=== PATIENT | male | born 1980 | race Caucasian/White ===

== ENCOUNTER 2022-06-10 08:39 | Emergency (ER) | payer MEDICAID, SELFPAY ==
--- NOTE | ~2022-06-10 | XR_ITS ---
EXAMINATION: XR CHEST CLINICAL INFORMATION: Chest tightness COMPARISON: 03/05/2019 TECHNIQUE: Frontal view of the chest was obtained. FINDINGS: Lungs are well-inflated and clear. Trachea is midline in position. No interstitial disease, consolidation or mass. No pleural effusion or pneumothorax. Cardiac silhouette and pulmonary vessels are normal in size. The mediastinum and kirill have normal contour. The visualized bones, and upper abdomen, are unremarkable. XR/XR chest 1V IMPRESSION: No acute cardiopulmonary abnormality.
--- NOTE | 2022-06-10 08:43 | ECG_ITS ---
Test Reason : chest pain Blood Pressure : / mmHG Vent. Rate : 078 BPM Atrial Rate : 078 BPM P-R Int : 188 ms QRS Dur : 098 ms QT Int : 380 ms P-R-T Axes : 064 025 000 degrees QTc Int : 433 ms Normal sinus rhythm Normal ECG When compared with ECG of 05-MAR-2019 07:26, No significant change was found Referred By: Generic ED Physician Electronically Signed By:Gerardo Patton
[2022-06-10 08:44] VITALS: BP 173/94; PULSE 79; RESP 18; TEMP 36.6; O2SAT 97; BMI 48.6
--- NOTE | 2022-06-10 09:29 | ED_ITS ---
HPI - General Adult General Chief complaint: General Medical Stated complaint: Chest tightness/ R&L shoulder pain Time Seen by Provider: 06/10/22 09:11 Source: patient Mode of arrival: ambulatory Limitations: no limitations History of Present Illness HPI narrative: 42-year-old male history of anxiety presents to the ED for chest tightness, anxious racing thoughts, tingling in extremities, and bilaterally aching shoulders. Patient denies any leg swelling, calf pain, coughing up blood, pleurisy, chest pain radiating to the back, fever, chills, or recent trauma. Patient states yesterday he was seen to get license and he was anxious and his blood pressure was high at the occupational health office. Patient states blood pressure has been high before when he had primary care provider and was anxious before visit and did improve during visit. Patient states he has been without primary care provider for a while. Patient denies any family history of anyone dying from RI less than 50 or dying suddenly from a blood clot less than 50. Patient denies any drug use. Related Data Previous Rx's Medication Instructions Recorded hydroxyzine HCl 25 mg tablet 25 mg PO QID PRN anxiety 7 days 06/10/22 #28 tabs Allergies Allergy/AdvReac Type Severity Reaction Status Date / Time No Known Allergies Allergy Unverified 02/17/20 16:33 Review of Systems Review of Systems: chest tighness, anxious thoughts, bilateral achy shoulders, tingling in extremites Yes all other systems are reviewed and are negative PMFSH Social History Social History Alcohol intake: never Smoked in Last 30 Days: Yes Use of substances other than those prescribed or required for medical reasons: Yes Substance Use Type: Marijuana Substance Use Frequency: Occasionally Advance Directives: No Advance Directives Information Provided: Yes Physical Exam ED Vital Signs: Vital Signs - 24 hr 06/10/22 08:44 06/10/22 10:00 06/10/22 12:03 Temperature 98 F 100.3 F 97.6 F Pulse Rate 79 74 64 Respiratory Rate 18 14 16 Blood Pressure 173/94 H 151/91 H 151/84 H Pulse Oximetry 97 96 97 Oxygen Delivery Method Room Air Room Air Room Air 06/10/22 12:11 06/10/22 13:54 Temperature 97.8 F 97.9 F Pulse Rate 72 66 Respiratory Rate 14 18 Blood Pressure 142/87 H 148/92 H Pulse Oximetry 100 97 Oxygen Delivery Method Room Air Room Air BMI result Body Mass Index 48.6 Const General: cooperative, healthy appearing, comfortable, no acute distress and well developed Orientation/consciousness: oriented to person, oriented to place, oriented to time and patient oriented x3 [facility] Head: Yes normal to inspection, Yes No palpable skull fracture present, Yes normocephalic and Yes atraumatic Eyes General: appearance normal, both eyes and all related structures Neck Neck: Yes normal visual inspection, Yes full ROM, Yes no lymphadenopathy, Yes no meningeal signs, Yes trachea midline, Yes supple, No anterior neck swelling and No tender Chest Chest palpation & inspection: normal inspection of the chest and normal palpation of entire chest wall Resp Effort & Inspection: normal respiratory effort and able to speak in complete sentences Auscultation: clear to auscultation bilaterally Cardio Jugular venous distension: no JVD Heart sounds: S1 normal heart sound present and S2 normal heart sound present GI Inspection: Yes normal to inspection and No abdominal wall ecchymosis Palpation (GI): Soft to palpation, not firm, nontender, no guarding and not rigid General: No CVA tenderness and Yes no CVA tenderness Back/Spine/Pelvis Back: no CVA tenderness, No CVA tenderness and No back tenderness Skin General skin exam: no rashes or lesions noted and elasticity normal Neuro Other: Negative for any neuro deficit General: oriented to person, oriented to place, oriented to time, patient oriented x3, gait normal, tone normal, moves all extremities, Normal light touch and pain sensation, no meningeal signs, no focal motor deficits, CN's II-XI intact bilaterally and normal sensation to monofilament Extrem Other: Bilateral lower extremities negative for swelling, pain edema, or calf tenderness General: Yes normal to inspection and Yes full ROM Psych Appearance: grossly normal, well kempt and not disheveled Course Course Course Narrative: Patient well-appearing. Symptoms may be due to anxiety but will do medical evaluation including EKG, troponin, BNP, chest x-ray, and COVID swab. Reevaluation(s) Reevaluation #1: EKG negative STEMI. Two troponins negative. D-dimer negative. Perc score is 0. BNP negative for CHF. Symptoms may be due to anxiety patient will be dis charged with Atarax but told to follow-up with primary care provider for further evaluation. Time: 14:17 Medical Decision Making Medical Decision Making [facility] Narrative: 42-year-old male history of anxiety presents to ED for chest tightness with anxious thoughts and bilateral shoulder achines. Patient denies any chest pain rib into the back. Pleurisy, leg swelling, calf pain, coughing up blood, fever, or chills. Will do a medical evaluation. Patient is not suicidal or homicidal Differential Diagnosis Differential Diagnoses: The differential diagnosis associated with the presentation includes (Pneumonia, CHF, mi, PE,) Admission/Observation Patient no indication admission or observation Consult Healthcare Provider No need for further consult/evaluate Lab Data [facility] Lab Attestation statement: I reviewed the patient's lab results. 06/10/22 09:46 06/10/22 09:46 Labs: Lab Results 06/10/22 06/10/22 06/10/22 Range/Units 09:46 09:46 09:46 WBC 8.9 (4.8-10.8) X10*3/uL RBC 4.76 (4.60-5.80) X10*6/uL Hgb 13.4 L (14.0-18.0) g/dl Hct 40.1 L (42.0-52.0) % MCV 84.2 (80.0-98.0) fL MCH 28.2 (27.0-33.0) pg MCHC 33.4 (31.0-36.0) g/dl RDW 13.3 (11.0-16.0) % Plt Count 232 (160-400) X10*3/uL MPV 9.5 (9.4-12.4) fL Immature Gran % (Auto) 0.2 (0.0-0.4) % Neut % (Auto) 69.8 (45-73) % Lymph % (Auto) 22.3 (20-40) % [place] % (Auto) 5.7 (2-11) % Eos % (Auto) 1.3 (0-4) % Baso % (Auto) 0.7 (0-2) % Lymph # (Auto) 2.0 (1.2-4.9) X10*3/uL [place] # (Auto) 0.5 (0.1-1.2) X10*3/uL Eos # (Auto) 0.1 (0.0-0.4) X10*3/uL Baso # (Auto) 0.1 (0.0-0.2) X10*3/uL Abs Immat Gran (auto) 0.02 (0.00-0.03) X10*3/uL Absolute Neuts (auto) 6.2 (2.0-8.3) x10*3/uL Absolute Nucleated RBC 0.000 (0.0-0.012) X10*3/uL Nucleated RBC % (auto) 0.0 (0.0-0.2) /100WBC PT 13.2 H (10.0-13.1) SEC INR 1.1 (0.9-1.1) APTT 30.3 (26.0-36.4) SEC D-Dimer High Sensitivty < 150 NG/ML Sodium 141 (135-145) mmol/L Potassium 4.1 (3.3-5.1) mmol/L Chloride 108 (96-108) mmol/L Carbon Dioxide 27 (22-29) mmol/L Anion Gap 10 L (12-20) BUN 12 (9-16) mg/dL Creatinine 0.85 (0.5-1.4) mg/dL Estim Creat Clear Calc 201.6 Estimated GFR > 60 Random Glucose 112 (60-115) mg/dL Calcium 8.8 (8.4-10.2) mg/dL Total Bilirubin 0.6 (0.0-1.0) mg/dL AST 22 (5-37) U/L ALT 27 (0-40) U/L Alkaline Phosphatase 75 (39-117) U/L Troponin I High Sens (<3.5-35.0) ng/L B-Natriuretic Peptide (<100) pg/mL Total Protein 6.7 (6.5-8.0) g/dL Albumin 3.9 (3.5-5.0) g/dL Influenza Type A (PCR) (Negative) Influenza Type B (PCR) (Negative) RSV RNA Qual (PCR) (Negative) SARS-CoV-2 RNA (RT-PCR) (Negative) 06/10/22 06/10/22 06/10/22 Range/Units 09:46 09:46 09:46 WBC (4.8-10.8) X10*3/uL RBC (4.60-5.80) X10*6/uL Hgb (14.0-18.0) g/dl Hct (42.0-52.0) % MCV (80.0-98.0) fL MCH (27.0-33.0) pg MCHC (31.0-36.0) g/dl RDW (11.0-16.0) % Plt Count (160-400) X10*3/uL MPV (9.4-12.4) fL Immature Gran % (Auto) (0.0-0.4) % Neut % (Auto) (45-73) % Lymph % (Auto) (20-40) % [place] % (Auto) (2-11) % Eos % (Auto) (0-4) % Baso % (Auto) (0-2) % Lymph # (Auto) (1.2-4.9) X10*3/uL [place] # (Auto) (0.1-1.2) X10*3/uL Eos # (Auto) (0.0-0.4) X10*3/uL Baso # (Auto) (0.0-0.2) X10*3/uL Abs Immat Gran (auto) (0.00-0.03) X10*3/uL Absolute Neuts (auto) (2.0-8.3) x10*3/uL Absolute Nucleated RBC (0.0-0.012) X10*3/uL Nucleated RBC % (auto) (0.0-0.2) /100WBC PT (10.0-13.1) SEC INR (0.9-1.1) APTT (26.0-36.4) SEC D-Dimer High Sensitivty NG/ML Sodium (135-145) mmol/L Potassium (3.3-5.1) mmol/L Chloride (96-108) mmol/L Carbon Dioxide (22-29) mmol/L Anion Gap (12-20) BUN (9-16) mg/dL Creatinine (0.5-1.4) mg/dL Estim Creat Clear Calc Estimated GFR Random Glucose (60-115) mg/dL Calcium (8.4-10.2) mg/dL Total Bilirubin (0.0-1.0) mg/dL AST (5-37) U/L ALT (0-40) U/L Alkaline Phosphatase (39-117) U/L Troponin I High Sens < 3.5 (<3.5-35.0) ng/L B-Natriuretic Peptide < 10 (<100) pg/mL Total Protein (6.5-8.0) g/dL Albumin (3.5-5.0) g/dL Influenza Type A (PCR) NEGATIVE (Negative) Influenza Type B (PCR) NEGATIVE (Negative) RSV RNA Qual (PCR) NEGATIVE (Negative) SARS-CoV-2 RNA (RT-PCR) NEGATIVE (Negative) 06/10/22 Range/Units 12:43 WBC (4.8-10.8) X10*3/uL RBC (4.60-5.80) X10*6/uL Hgb (14.0-18.0) g/dl Hct (42.0-52.0) % MCV (80.0-98.0) fL MCH (27.0-33.0) pg MCHC (31.0-36.0) g/dl RDW (11.0-16.0) % Plt Count (160-400) X10*3/uL MPV (9.4-12.4) fL Immature Gran % (Auto) (0.0-0.4) % Neut % (Auto) (45-73) % Lymph % (Auto) (20-40) % [place] % (Auto) (2-11) % Eos % (Auto) (0-4) % Baso % (Auto) (0-2) % Lymph # (Auto) (1.2-4.9) X10*3/uL [place] # (Auto) (0.1-1.2) X10*3/uL Eos # (Auto) (0.0-0.4) X10*3/uL Baso # (Auto) (0.0-0.2) X10*3/uL Abs Immat Gran (auto) (0.00-0.03) X10*3/uL Absolute Neuts (auto) (2.0-8.3) x10*3/uL Absolute Nucleated RBC (0.0-0.012) X10*3/uL Nucleated RBC % (auto) (0.0-0.2) /100WBC PT (10.0-13.1) SEC INR (0.9-1.1) APTT (26.0-36.4) SEC D-Dimer High Sensitivty NG/ML Sodium (135-145) mmol/L Potassium (3.3-5.1) mmol/L Chloride (96-108) mmol/L Carbon Dioxide (22-29) mmol/L Anion Gap (12-20) BUN (9-16) mg/dL Creatinine (0.5-1.4) mg/dL Estim Creat Clear Calc Estimated GFR Random Glucose (60-115) mg/dL Calcium (8.4-10.2) mg/dL Total Bilirubin (0.0-1.0) mg/dL AST (5-37) U/L ALT (0-40) U/L Alkaline Phosphatase (39-117) U/L Troponin I High Sens < 3.5 (<3.5-35.0) ng/L B-Natriuretic Peptide (<100) pg/mL Total Protein (6.5-8.0) g/dL Albumin (3.5-5.0) g/dL Influenza Type A (PCR) (Negative) Influenza Type B (PCR) (Negative) RSV RNA Qual (PCR) (Negative) SARS-CoV-2 RNA (RT-PCR) (Negative) Independent Interpretation I performed an independent interpretation of an: EKG Interpretation: Normal sinus rhythm. Ventricular rate 78. FL interval 180. QRS 98. QTC 433. Negative STEMI. Radiology Impression Discussion of test interpretation with radiology: I have reviewed the radiologist's reading. Radiologist Impression: X-ray negative for pneumonia. Prescription Management I considered prescription management with: Other (ataraax) Discharge Plan Discharge Clinical Impression: Atypical chest pain, Anxiety Patient Disposition: Home, Self-Care Instructions: Chest Pain (ED), Anxiety (ED) Additional Instructions: Symptoms may be due to anxiety but recommend follow-up with primary care provider. In the ED EKG blood work and x-ray came back negative for risk of blood clot, heart failure, or heart attack. Your COVID test came back negative. Keep records of your blood pressures to show your primary care provider. Return to ED for any leg swelling, calf pain, coughing up blood, fever, chills, chest pain, shortness of breath, chest pain ripping to the back, syncope, or any other concerning symptoms. Prescriptions: New hydroxyzine HCl 25 mg tablet 25 mg PO QID PRN (Reason: anxiety) 7 Days Qty: 28 0RF Referrals: Osorio Goldsmith MD [Primary Care Provider] - (Atypical chest) Stand Alone Forms: Work/School Release Interventions: ED Discharge Assessment Last Done: 06/10/22 14:41 Discharge Date/Time: 06/10/22 14:41 Print Language: Greek
[2022-06-10 09:51] LABS: MANUAL DIFF FLAG NO
[2022-06-10 09:52] LABS: Basophils Absolute Auto 0.1 X10*3/uL (0.0-0.2); Basophils Percent Auto 0.7 % (0-2); Eosinophils Absolute Auto 0.1 X10*3/uL (0.0-0.4); Eosinophils Percent Auto 1.3 % (0-4); Hematocrit 40.1 % (42.0-52.0); Hemoglobin 13.4 g/dl (14.0-18.0); Imm Gran Abs Auto 0.02 X10*3/uL (0.00-0.03); Imm Gran Pct Auto 0.2 % (0.0-0.4); Lymphocytes Percent Auto 22.3 % (20-40); Mean Corpuscular HGB Conc 33.4 g/dl (31.0-36.0); Mean Corpuscular Hemoglobin 28.2 pg (27.0-33.0); Mean Corpuscular Volume 84.2 fL (80.0-98.0); Mean Platelet Volume 9.5 fL (9.4-12.4); Monocytes Absolute Auto 0.5 X10*3/uL (0.1-1.2); Monocytes Percent Auto 5.7 % (2-11); Neutrophils Absolute Auto 6.2 x10*3/uL (2.0-8.3); Neutrophils Percent Auto 69.8 % (45-73); Platelet Count 232 X10*3/uL (160-400); Red Blood Count 4.76 X10*6/uL (4.60-5.80); Red Cell Distribution Width 13.3 % (11.0-16.0); White Blood Count 8.9 X10*3/uL (4.8-10.8)
[2022-06-10 10:00] VITALS: BP 151/91; PULSE 74; RESP 14; TEMP 37.9; O2SAT 96
[2022-06-10 10:00] LABS: INTERNATIONAL NORM RATIO 1.1 (0.9-1.1); Prothrombin Time 13.2 SEC (10.0-13.1)
[2022-06-10 10:03] LABS: Partial Thromboplastin Time 30.3 SEC (26.0-36.4)
[2022-06-10 10:16] LABS: Alanine Aminotransferase 27 U/L (0-40); Albumin Level 3.9 g/dL (3.5-5.0); Alkaline Phosphatase 75 U/L (39-117); Anion Gap 10 (12-20); Aspartate Amino Transferase 22 U/L (5-37); Bilirubin Total 0.6 mg/dL (0.0-1.0); Blood Urea Nitrogen 12 mg/dL (9-16); Calcium 8.8 mg/dL (8.4-10.2); Carbon Dioxide 27 mmol/L (22-29); Chloride 108 mmol/L (96-108); Creatinine Clr Calc Pharmacy 201.6; Estimated Glomerular Filt Rate > 60; Glucose Random 112 mg/dL (60-115); Potassium 4.1 mmol/L (3.3-5.1); Sodium 141 mmol/L (135-145); Total Protein 6.7 g/dL (6.5-8.0)
[2022-06-10 10:20] LABS: B Type Natriuretic Peptide < 10 pg/mL (<100)
[2022-06-10 10:32] LABS: Influenza A PCR NEGATIVE (Negative); Influenza B PCR NEGATIVE (Negative); Resp Syncy Virus RNA Qual PCR NEGATIVE (Negative); SARS COV2 PCR INHOUSE NEGATIVE (Negative)
[2022-06-10 10:39] LABS: Troponin-I High Sensitivity < 3.5 ng/L (<3.5-35.0)
[2022-06-10 12:03] VITALS: BP 151/84; PULSE 64; RESP 16; TEMP 36.4; O2SAT 97
--- NOTE | 2022-06-10 12:06 | MHC.EDTECH ---
temp previously taken with temporal and the temperature was not accurate. temp rechecked by nurse and entered correctly
[2022-06-10 12:11] VITALS: BP 142/87; PULSE 72; RESP 14; TEMP 36.6; O2SAT 100
[2022-06-10 12:41] LABS: D Dimer High Sensitivity < 150 NG/ML
[2022-06-10 13:15] LABS: Troponin-I High Sensitivity < 3.5 ng/L (<3.5-35.0)
[2022-06-10 13:54] VITALS: BP 148/92; PULSE 66; RESP 18; TEMP 36.6; O2SAT 97
== END 2022-06-10 14:41 | disposition home or self-care (01) ==
PROVIDERS: Physician Assistant; Emergency Provider Student in an Organized Health Care Education/Training Program; PCP Internal Medicine
DX: R07.89 Other chest pain (principal); F41.9 Anxiety disorder, unspecified; Z20.822 Contact with and (suspected) exposure to COVID-19; Z20.828 Contact with and (suspected) exposure to other viral communicable diseases
CPT/HCPCS: 0241U; 36415; 71045; 80053; 83880; 84484; 85025; 85379; 85610; 85730; 93005; 99283; 99284

== ENCOUNTER 2023-06-10 21:48 | Emergency (ER) | payer BC, SELFPAY ==
[2023-06-10 21:51] VITALS: BP 153/91; PULSE 114; RESP 18; TEMP 36.7; O2SAT 96; BMI 50.1
[2023-06-10 22:13] LABS: MANUAL DIFF FLAG NO
[2023-06-10 22:14] LABS: Basophils Absolute Auto 0.1 X10*3/uL (0.0-0.2); Basophils Percent Auto 0.7 % (0-2); Eosinophils Absolute Auto 0.2 X10*3/uL (0.0-0.4); Hematocrit 34.9 % (42.0-52.0); Imm Gran Abs Auto 0.03 X10*3/uL (0.00-0.03); Imm Gran Pct Auto 0.3 % (0.0-0.4); Lymphocytes Absolute Auto 2.4 X10*3/uL (1.2-4.9); Mean Corpuscular HGB Conc 31.5 g/dl (31.0-36.0); Mean Corpuscular Hemoglobin 27.7 pg (27.0-33.0); Mean Corpuscular Volume 87.9 fL (80.0-98.0); Mean Platelet Volume 9.2 fL (9.4-12.4); Monocytes Absolute Auto 0.7 X10*3/uL (0.1-1.2); Monocytes Percent Auto 8.2 % (2-11); Neutrophils Absolute Auto 5.5 x10*3/uL (2.0-8.3); Neutrophils Percent Auto 61.8 % (45-73); Platelet Count 288 X10*3/uL (160-400); Red Blood Count 3.97 X10*6/uL (4.60-5.80); Red Cell Distribution Width 13.8 % (11.0-16.0); White Blood Count 8.9 X10*3/uL (4.8-10.8)
[2023-06-10 22:27] LABS: Alanine Aminotransferase 30 U/L (0-40); Albumin Level 4.1 g/dL (3.5-5.0); Alkaline Phosphatase 74 U/L (39-117); Anion Gap 16 (12-20); Aspartate Amino Transferase 31 U/L (5-37); Bilirubin Total 0.5 mg/dL (0.0-1.0); Blood Urea Nitrogen 16 mg/dL (9-16); Calcium 9.6 mg/dL (8.4-10.2); Carbon Dioxide 26 mmol/L (22-29); Chloride 106 mmol/L (96-108); Creatinine Clr Calc Pharmacy 200.7; Estimated Glomerular Filt Rate > 60; Glucose Random 174 mg/dL (60-115); Potassium 4.2 mmol/L (3.3-5.1); Sodium 144 mmol/L (135-145); Total Protein 7.9 g/dL (6.5-8.0)
[2023-06-11 01:41] VITALS: BP 154/87; PULSE 109; RESP 16; TEMP 36.2; O2SAT 96
[2023-06-11 01:47] LABS: Appearance Urine Turbid; Color Urine Yellow; Glucose Urine UA Negative (Negative); Leukocyte Esterase Urine Large (3+) (Negative); Nitrite Urine Positive (Negative); PH >= 9.0 (5.0-9.0); UMIC TRIGGER UACC YES; Urine Blood Moderate (2+) (Negative); Urine Ketones Negative (Negative); Urine Protein 100 (2+) mg/dL (Neg-Trace)
[2023-06-11 01:54] LABS: Bacteria Urine 4+ (None Seen); Other Crystals Urine Present; RBC Urine >20 /HPF (0-2); UACC Culture Trigger YES; WBC Urine 21-50 /HPF (0-5)
--- NOTE | 2023-06-11 02:16 | ED_ITS ---
HPI - Male Genitourinary General Chief complaint: Urogenital-Male Stated complaint: Catheter issue/pain Time Seen by Provider: 06/11/23 02:16 Source: patient Mode of arrival: ambulatory Limitations: no limitations History of Present Illness HPI Narrative: Patient with history of urethral strictures status post surgery and Mata catheter placed on 05/22 patient was given Bactrim at the time for 1 week, for last few days complaining of burning around the penis feel like he has to urinate with bladder spasm no fever no chills no nausea vomiting no flank pain patient is supposed to get Mata catheter removed yesterday Related Data Previous Rx's Medication Instructions Recorded hydroxyzine HCl 25 mg tablet 25 mg PO QID PRN anxiety 7 days 06/10/22 #28 tabs cefuroxime axetil 500 mg tablet 500 mg PO BID 10 days #20 tabs 06/11/23 Allergies Allergy/AdvReac Type Severity Reaction Status Date / Time No Known Allergies Allergy Unverified 02/17/20 16:33 Review of Systems 2 Review of Systems: Yes all other systems are reviewed and are negative [facility] Social History Social History Alcohol intake: never Smoked in Last 30 Days: Yes Use of substances other than those prescribed or required for medical reasons: Yes Substance Use Type: Marijuana Advance Directives: No Advance Directives Information Provided: No Physical Exam 2 Vital Signs: Vital Signs: Last Vital Signs Temp 97.2 F 06/11/23 01:41 Pulse 109 H 06/11/23 01:41 Resp 16 06/11/23 01:41 BP 154/87 H 06/11/23 01:41 Pulse Ox 96 06/11/23 01:41 O2 Del Method Room Air 06/11/23 01:41 BMI result Body Mass Index 50.1 Appearance: Alert. Oriented X3. No acute distress. Eyes: PERRLA, No Nystagmus ENT: Pharynx normal. Oral Mucosa moist Neck: Normal inspection. Neck supple. CVS: Normal heart rate and rhythm. Pulses normal. Respiratory: No respiratory distress. Equal air entry bilateral, Abdomen: Soft and nontender. Bowel sounds are present, no mass palpable, no CVA tenderness Mata catheter in place with sediments in the Mata catheter Skin: Skin warm and dry. Normal skin color. Normal skin turgor. Medications Administered Discontinued Medications Generic Name Dose Route Start Last Admin Trade Name Bjq PRN Reason Stop Dose Admin Cefuroxime Axetil 500 mg 06/11/23 02:40 06/11/23 02:55 Cefuroxime Axetil 500 Mg Tablet PO 06/11/23 02:41 500 mg ONCE ONE Administration Phenazopyridine HCl 200 mg 06/11/23 02:40 06/11/23 02:55 Phenazopyridine Hcl 200 Mg Tablet PO 06/11/23 02:41 200 mg ONCE ONE Administration Medical Decision Making Medical Decision Making [facility] Narrative: Patient with indwelling Mata catheter with UTI felt better after Mata catheter was removed urine shows bacteria with nitrite positive will discharge patient home on Ceftin Lab Data [facility] Lab Attestation statement: I reviewed the patient's lab results. 06/10/23 22:09 06/10/23 22:09 Labs: Lab Results 06/10/23 06/11/23 06/11/23 Range/Units 22:09 01:41 02:44 WBC 8.9 (4.8-10.8) X10*3/uL RBC 3.97 L (4.60-5.80) X10*6/uL Hgb 11.0 L (14.0-18.0) g/dl Hct 34.9 L (42.0-52.0) % MCV 87.9 (80.0-98.0) fL MCH 27.7 (27.0-33.0) pg MCHC 31.5 (31.0-36.0) g/dl RDW 13.8 (11.0-16.0) % Plt Count 288 (160-400) X10*3/uL MPV 9.2 L (9.4-12.4) fL Immature Gran % (Auto) 0.3 (0.0-0.4) % Neut % (Auto) 61.8 (45-73) % Lymph % (Auto) 27.0 (20-40) % [place] % (Auto) 8.2 (2-11) % Eos % (Auto) 2.0 (0-4) % Baso % (Auto) 0.7 (0-2) % Lymph # (Auto) 2.4 (1.2-4.9) X10*3/uL [place] # (Auto) 0.7 (0.1-1.2) X10*3/uL Eos # (Auto) 0.2 (0.0-0.4) X10*3/uL Baso # (Auto) 0.1 (0.0-0.2) X10*3/uL Abs Immat Gran (auto) 0.03 (0.00-0.03) X10*3/uL Absolute Neuts (auto) 5.5 (2.0-8.3) x10*3/uL Absolute Nucleated RBC 0.000 (0.0-0.012) X10*3/uL Nucleated RBC % (auto) 0.0 (0.0-0.2) /100WBC Sodium 144 (135-145) mmol/L Potassium 4.2 (3.3-5.1) mmol/L Chloride 106 (96-108) mmol/L Carbon Dioxide 26 (22-29) mmol/L Anion Gap 16 (12-20) BUN 16 (9-16) mg/dL Creatinine 0.86 (0.5-1.4) mg/dL Estim Creat Clear Calc 200.7 Estimated GFR > 60 Random Glucose 174 H (60-115) mg/dL Calcium 9.6 D (8.4-10.2) mg/dL Total Bilirubin 0.5 (0.0-1.0) mg/dL AST 31 (5-37) U/L ALT 30 (0-40) U/L Alkaline Phosphatase 74 (39-117) U/L Total Protein 7.9 (6.5-8.0) g/dL Albumin 4.1 (3.5-5.0) g/dL Urine Color Yellow Yellow Urine Appearance Turbid Cloudy Urine pH >= 9.0 7.5 (5.0-9.0) Ur Specific [place] 1.020 1.020 (1.005-1.025) Urine Protein 100 (2+) H 30 (1+) H (Neg-Trace) mg/dL Urine Glucose (UA) Negative Negative (Negative) mg/dL Urine Ketones Negative Negative (Negative) mg/dL Urine Blood Moderate (2+) H Moderate (2+) H (Negative) Urine Nitrite Positive H Positive H (Negative) Ur Leukocyte Esterase Large (3+) H Moderate (2+) H (Negative) Urine RBC >20 H >20 H (0-2) /HPF Urine WBC 21-50 H >50 H (0-5) /HPF Ur Squamous Epith Cells 3-5 0-2 (0-2) /HPF Other Crystals Present Urine Bacteria 4+ 4+ (None Seen) Hyaline Casts 11-20 0-2 (0-2) /LPF Discharge Plan Discharge Clinical Impression: Urinary tract infection Patient Disposition: Home, Self-Care Instructions: Urinary Tract Infection in Men (ED) Additional Instructions: Drink plenty of fluids Take antibiotic as prescribed Will culture urine and let you know if resistant bacteria Report to the ER/PCP/urologist if high fever/vomiting/abdominal pain Prescriptions: New cefuroxime axetil 500 mg tablet 500 mg PO BID 10 Days Qty: 20 0RF No Action hydroxyzine HCl 25 mg tablet 25 mg PO QID PRN (Reason: anxiety) 7 Days Qty: 28 0RF Interventions: ED Discharge Assessment Last Done: 06/11/23 03:39 Discharge Date/Time: 06/11/23 03:40
--- NOTE | 2023-06-11 02:29 | PC.NURSE ---
Pt A&Ox3, reports feeling like he is unable to urinate despite 16 F F/C being in place, Pt reports 10/10 pain feeling burning, pain and pressure . F/C removed, Pt reports decrease in pain. Pt had one episode of incontinence. New urine sample will be collected and sent to lab.
[2023-06-11 02:52] LABS: Appearance Urine Cloudy; Color Urine Yellow; Glucose Urine UA Negative (Negative); Leukocyte Esterase Urine Moderate (2+) (Negative); Nitrite Urine Positive (Negative); PH 7.5 (5.0-9.0); UMIC TRIGGER UACC YES; Urine Blood Moderate (2+) (Negative); Urine Ketones Negative (Negative); Urine Protein 30 (1+) mg/dL (Neg-Trace)
[2023-06-11] MEDS: cefuroxime axetiL 500 MG TABLET PO (02:55)
[2023-06-11] MEDS: Phenazopyridine HCL 200 MG TABLET PO (02:55)
[2023-06-11 03:02] LABS: Bacteria Urine 4+ (None Seen); Hyaline Casts Urine 0-2 /LPF (0-2); RBC Urine >20 /HPF (0-2); Squamous Epithelial Cell Urine 0-2 /HPF (0-2); UACC Culture Trigger YES; WBC Urine >50 /HPF (0-5)
== END 2023-06-11 03:40 | disposition home or self-care (01) ==
PROVIDERS: Emergency Provider Internal Medicine; PCP Internal Medicine
DX: N39.0 Urinary tract infection, site not specified (principal); Z79.899 Other long term (current) drug therapy
CPT/HCPCS: 36415; 51798; 80053; 81001; 85025; 87086; 99283; 99285

== ENCOUNTER 2024-07-01 07:36 | Emergency (ER) | payer BC, SELFPAY ==
--- NOTE | ~2024-07-01 | CT_ITS ---
EXAMINATION: CT FACIAL BONES WITHOUT CONTRAST CLINICAL INFORMATION: Sinus disease. COMPARISON: None available. TECHNIQUE: Contiguous axial images through the maxillofacial bones using 3 mm collimation with bone and soft tissue algorithm. Sagittal and coronal reformatted images acquired. This CT examination was performed using dose optimization techniques as appropriate, variously including the following: *Automated exposure control *Adjustment of mA and/or kV according to patient size (this includes techniques or standardized protocols for targeted exams where dose is matched to indication/reason for exam; i.e. extremities or head) *Use of iterative reconstruction technique DLP: 476 mGy centimeter. FINDINGS: The paranasal sinuses are well pneumatized. There is polypoid mucosal thickening in the maxillary sinuses. The ostiomeatal units are patent. There is no air-fluid level. There is a pneumatization of the left pterygoid recess. The vidian canals are type I. The intrasinus septum of the sphenoid anchors in the anterior carotid canal. There is a left ethmoid bulla. The frontal nasal recesses are patent. There is a luz bullosa left middle turbinate. There are nasal cavity, vestibule and nostrils are patent. No acute cortical disruption and the maxillofacial bones. The intraconal and extraconal compartments demonstrated no gross masses or fluid collections nor hematoma. The eyeballs are intact. The lacrimal glands are symmetric. The managed care analyst spaces, parapharyngeal spaces and carotid spaces demonstrate no gross masses or fluid collections. No gross masses or fluid collections or soft tissue fullness in the nasopharynx, retropharynx or oropharynx or hypopharynx. Punctate calcification right palatine tonsils. Tympanic cavities and mastoid cells are aerated. CT/CT facial bones wo IV con IMPRESSION: Polypoid maxillary sinus disease, mild to moderate. Electronically signed by: Vance Tirado MD 07/01/2024 10:44 AM EST
[2024-07-01 07:50] VITALS: BP 167/88; PULSE 74; RESP 20; TEMP 36.8; O2SAT 97; BMI 50.2
--- NOTE | 2024-07-01 09:03 | ED.GENADULT ---
HPI - General Adult General Chief complaint: General Medical Stated complaint: sinus infection Time Seen by Provider: 07/01/24 08:46 Source: patient Mode of arrival: ambulatory Limitations: no limitations History of Present Illness HPI narrative: This is a 44 years old male presented ambulatory to the emergency department with a chief complaint of facial pain, he states that he felt pressure in the right side of the face symptoms started on Friday when he uses pray pending without using a mask. He has been taking acetaminophen without improvement Onset (ago): day(s) Location: face Radiation: non-radiation Severity: moderate Quality: burning Pain Consistency: constant Relieving factors: none Exacerbating factors: none Related Data Previous Rx's ?Medication ?Instructions ?Recorded hydroxyzine HCl 25 mg tablet 25 mg PO QID PRN anxiety 7 days 06/10/22 #28 tabs cefuroxime axetil 500 mg tablet 500 mg PO BID 10 days #20 tabs 06/11/23 tramadol 50 mg tablet 50 mg PO TID PRN pain #12 tabs 07/01/24 Allergies Allergy/AdvReac Type Severity Reaction Status Date / Time No Known Allergies Allergy Verified 07/01/24 07:53 Review of Systems Constitutional: Constitutional: Reports no additional constitutional complaints ENT: Reports system reviewed and no additional complaints, except as documented Respiratory: Respiratory: Reports no additional respiratory complaints [facility] Past Medical History Attestation statement: The following information was validated with the patient. [facility] Narrative: htn Social History Social History Alcohol intake: never Substance Use Type: Marijuana Advance Directives: No Advance Directives Information Provided: Yes Physical Exam ED Vital Signs: Vital Signs - 24 hr 07/01/24 07:50 Temperature 98.2 F Pulse Rate 74 Respiratory Rate 20 Blood Pressure 167/88 H Pulse Oximetry 97 Oxygen Delivery Method Room Air BMI result Body Mass Index 50.2 Const General: cooperative Nutritional Appearance: average body habitus Orientation/consciousness: oriented to time HENMT Other: tenderness frontal sinus Head: Yes normal to inspection General nose exam: Normal external nose present Face and sinus: Yes normal facial exam and Yes other Mouth: Normal oral and palatal mucosa present Throat: Yes posterior oropharynx normal Neck Neck: Yes normal visual inspection Thyroid: Thyroid normal Resp Effort & Inspection: normal respiratory effort Cardio Jugular venous distension: no JVD Rate: regular rate Rhythm: regular rhythm GI Inspection: Yes normal to inspection Neuro General: oriented to time Course Reevaluation(s) Reevaluation #1: CT scan reviewed he does have polyps my no other abnormality. I think he is okay to discharge home follow-up with the primary care physician, I do not think we need to give him antibiotic, he stated that he tried Tylenol and Motrin without relief I will give him a few tramadol Time: 11:13 Medical Decision Making Medical Decision Making [facility] Narrative: Patient presented with sinus pain see that he use sprayed pending with her mask Differential Diagnosis Differential Diagnoses: The differential diagnosis associated with the presentation includes Chemical irritation/sinusitis Admission/Observation Consideration of admission/observation: Escalation of care including admission/observation considered Lab Data [facility] Lab Attestation statement: I reviewed the patient's lab results. Labs: Lab Results 07/01/24 Range/Units 08:07 Influenza Type A (PCR) NEGATIVE (Negative) Influenza Type B (PCR) NEGATIVE (Negative) RSV RNA Qual (PCR) NEGATIVE (Negative) SARS-CoV-2 RNA (RT-PCR) NEGATIVE (Negative) Independent Interpretation I performed an independent interpretation of an: CT Scan Radiology Impression Discussion of test interpretation with radiology: I have reviewed the radiologist's reading. Discharge Plan Discharge Clinical Impression: Acute facial pain Patient Disposition: Home, Self-Care Additional Instructions: Follow-up with your primary care physician, return to the emergency room if you worse any concern Prescriptions: New tramadol 50 mg tablet 50 mg PO TID PRN (Reason: pain) Qty: 12 0RF No Action hydroxyzine HCl 25 mg tablet 25 mg PO QID PRN (Reason: anxiety) 7 Days Qty: 28 0RF cefuroxime axetil 500 mg tablet 500 mg PO BID 10 Days Qty: 20 0RF Print Language: Indonesian
[2024-07-01 09:31] LABS: Influenza A PCR NEGATIVE (Negative); Influenza B PCR NEGATIVE (Negative); Resp Syncy Virus RNA Qual PCR NEGATIVE (Negative); SARS COV2 PCR INHOUSE NEGATIVE (Negative)
[2024-07-01 11:15] VITALS: BP 167/88; PULSE 74; RESP 20; TEMP 36.8; O2SAT 97
== END 2024-07-01 11:16 | disposition home or self-care (01) ==
PROVIDERS: Physician Assistant Medical; Emergency Provider Emergency Medicine; PCP Internal Medicine
DX: G50.1 Atypical facial pain (principal); Z03.818 Encounter for observation for suspected exposure to other biological agents ruled out
CPT/HCPCS: 0241U; 70486; 99282; 99284

== ENCOUNTER → 2024-07-01 09:02 | Outpatient (BNV) | payer BC, SELFPAY | PROVIDERS: Emergency Provider Emergency Medicine; PCP Internal Medicine; Visit Provider Radiology Diagnostic Radiology | DX: J34.9 Unspecified disorder of nose and nasal sinuses (principal) | CPT/HCPCS: 70486 ==